=== PATIENT | female | born 1965 | race Caucasian/White ===

== ENCOUNTER 2016-10-16 15:39 | Inpatient (IN) | payer OTHER ==
[2016-10-16 17:22] VITALS: BMI 25.2
--- NOTE | 2016-10-16 18:29 | HP ---
CIWA Score - CIWA Score Nausea/Vomitin-Mild Nausea/No Vomiting Muscle Tremors: 4-Moderate,w/Arms Extend Anxiety: 4-Mod. Anxious/Guarded Agitation: 4-Moderately Restless Paroxysmal Sweats: 1-Minimal Palms Moist Orientation: 0-Oriented Tacttile Disturbances: 0-None Auditory Disturbances: 0-None Visual Disturbances: 0-None Headache: 2-Mild CIWA-Ar Total Score: 16 Admission ROS BHS - HPI Chief Complaint: WITHDRAWAL SX Allergies/Adverse Reactions: Allergies Allergy/AdvReac Type Severity Reaction Status Date / Time Penicillins Allergy Verified 10/16/16 17:27 chocolate Allergy Uncoded 10/16/16 17:27 History of Present Illness: 51 YEARS OLD FEMALE WITH LONG HISTORY OF ALCOHOL NICOTINE DEPENDENCE HAS ASTHMA COPD AND SCHIZOPHRENIA IS ADMITTED TO DETOX Exam Limitations: No Limitations - Ebola screening Have you traveled outside of the country in the last 21 days: No Have you had contact with anyone from an Ebola affected area: No Have you been sick,other than usual withdrawal symptoms: No Do you have a fever: No - Review of Systems Constitutional: Chills, Loss of Appetite, Changes in sleep, Unintentional Wgt. Loss, Unexplained wgt Loss EENT: reports: Other (LOST EYE GLASSES) Respiratory: reports: Cough, SOB with Exertion Cardiac: reports: No Symptoms Reported GI: reports: Nausea, Poor Appetite, Poor Fluid Intake, Abdominal cramping : reports: No Symptoms Reported Musculoskeletal: reports: Back Pain Integumentary: reports: Change in Hair/Nails Neuro: reports: Tremors Endocrine: reports: No Symptoms Reported Hematology: reports: No Symptoms Reported Psychiatric: reports: Judgement Intact, Orientated x3 Other Systems: Reviewed and Negative Patient History - Patient Medical History Hx Anemia: No Hx Asthma: Yes Hx Chronic Obstructive Pulmonary Disease (COPD): No Hx Cancer: No Hx Cardiac Disorders: No Hx Congestive Heart Failure: No Hx Hypertension: No Hx Hypercholesterolemia: No Hx Pacemaker: No HX Cerebrovascular Accident: Yes (Mild right side 2014) Hx Seizures: No Hx Dementia: No Hx Diabetes: No Hx Gastrointestinal Disorders: No Hx Liver Disease: No Hx Genitourinary Disorders: No Hx Sexually Transmitted Disorders: No Hx Renal Disease (ESRD): No Hx Thyroid Disease: No Hx Human Immunodeficiency Virus (HIV): No Hx Hepatitis C: No Hx Depression: Yes Hx Suicide Attempt: No Hx Bipolar Disorder: Yes Hx Schizophrenia: Yes - Patient Surgical History Past Surgical History: Yes Hx Neurologic Surgery: No Hx Cataract Extraction: No Hx Cardiac Surgery: No Hx Lung Surgery: No Hx Breast Surgery: No Hx Breast Biopsy: Yes (cyst right breast 2011) Hx Abdominal Surgery: No Hx Appendectomy: No Hx Cholecystectomy: No Hx Genitourinary Surgery: No Hx Section: No Hx Orthopedic Surgery: No Hx Hysterectomy: No Anesthesia Reaction: No - PPD History Previous Implant?: Yes Documented Results: Negative w/o proof Implanted On Prior R Admission?: Yes Date: 09/15/14 PPD to be Administered?: Yes - Reproductive History Patient is a Female of Child Bearing Age (11 -55 yrs old): Yes Last Menstrual Period: 10/16/12 Patient : No - Smoking Cessation Smoking history: Current every day smoker Have you smoked in the past 12 months: Yes Aproximately how many cigarettes per day: 5 Cigars Per Day: 0 Hx Chewing Tobacco Use: No Initiated information on smoking cessation: Yes 'Breaking Loose' booklet given: 10/16/16 - Substance & Tx. History Hx Alcohol Use: Yes Hx Substance Use: Yes Substance Use Type: Alcohol, Marijuana Hx Substance Use Treatment: Yes - Substances Abused Alcohol Route: Oral Frequency: Daily Amount used: 1 Liter Vodka Age of first use: 14 Date of Last Use: 10/15/16 Marijuana/Hashish Route: Smoking Frequency: Daily Amount used: 5 bags Age of first use: 19 Date of Last Use: 10/15/16 Heroin Route: Inhalation Frequency: 1-3 times last 30 days Amount used: 1 bag Age of first use: 19 Date of Last Use: 09/16/16 Family Disease History - Family Disease History Family Disease History: Heart Disease: Mother (SEIZURE/HIV), Other: Father ( ALCOHOL), Mother, Brother (SUICIDAL) Admission Physical Exam BHS - Vital Signs Vital Signs: Vital Signs - 24 hr 10/16/16 17:16 Temperature 97.6 F Pulse Rate 92 H Respiratory 135 H Rate Blood Pressure 135/83 - Physical General Appearance: Yes: Nourished, Appropriately Dressed, Mild Distress, Tremorous, Irritable, Sweating, Anxious HEENTM: Yes: Hearing grossly Normal, Normal ENT Inspection, Normocephalic, Normal Voice Respiratory: Yes: Chest Non-Tender, No Respiratory Distress, No Accessory Muscle Use, Wheezing, Expiration Neck: Yes: Supple, Trachea in good position Breast: Yes: Breasts Symetrical Cardiology: Yes: Regular Rhythm, S1, S2, Tachycardia Abdominal: Yes: Non Tender, Soft Genitourinary: Yes: Within Normal Limits Back: Yes: Normal Inspection Musculoskeletal: Yes: full range of Motion, Gait Steady, Back pain Extremities: Yes: Normal Inspection, Normal Range of Motion, Non-Tender, Tremors Neurological: Yes: Fully Oriented, Alert, Motor Strength 5/5, Normal Response, Depressed Affect Integumentary: Yes: Warm, Rash (ALLERGIC TO CHOCOLATE ARMS) Lymphatic: Yes: Within Normal Limits - Diagnostic (1) Asthma Current Visit: Yes Status: Acute Qualifiers: Asthma severity: mild persistent Asthma complication type: with status asthmaticus Qualified Code(s): J45.32 - Mild persistent asthma with status asthmaticus (2) Schizoaffective disorder Current Visit: Yes Status: Suspected Qualifiers: Schizoaffective disorder type: bipolar Qualified Code(s): F25.0 - Schizoaffective disorder, bipolar type (3) COPD (chronic obstructive pulmonary disease) Current Visit: Yes Status: Acute Qualifiers: COPD type: emphysema (4) Nicotine dependence Current Visit: Yes Status: Acute Qualifiers: Nicotine product type: cigarettes Substance use status: in withdrawal Qualified Code(s): F17.213 - Nicotine dependence, cigarettes, with withdrawal (5) GERD (gastroesophageal reflux disease) Current Visit: Yes Status: Acute Qualifiers: Esophagitis presence: without esophagitis Qualified Code(s): K21.9 - Gastro-esophageal reflux disease without esophagitis Cleared for Admission S - Detox or Rehab [facility] Level of Care: Medically Managed Detox Regimen/Protocol: Librium [facility] Breath Alcohol Content Breath Alcohol Content: 0 Urine Pregancy Test - Result Urine Test Results: Negative- NO Line Present Urine Drug Screen - Results Drug Screen Negative: No Urine Drug Screen Results: THC-Marijuana, TCA-Tricyclic Antidepress
[2016-10-16] MEDS ORDERED: MENTHOL/PHENOL 1 EACH UD MM PRN (18:38)
[2016-10-16] MEDS ORDERED: MAGNESIUM HYDROX 2400MG/30ML ORAL SUSPENSION 30 ML CUP PO PRN (18:38)
[2016-10-16] MEDS ORDERED: LOPERAMIDE HCL 2 MG CAPSULE PO PRN (18:38)
[2016-10-16] MEDS ORDERED: MAGNESIUM CITRATE 300 ML BOTTLE PO PRN (18:38)
[2016-10-16] MEDS ORDERED: hydrOXYzine PAMOATE 50 MG CAPSULE (FP) PO PRN (18:38)
[2016-10-16] MEDS ORDERED: NICOTINE POLACRILEX 2 MG GUM BC PRN (18:38)
[2016-10-16] MEDS ORDERED: MAG HYDROX/AL HYDROX/SIMETH 30 ML UNIT-DOSE CUP PO PRN (18:38)
[2016-10-16] MEDS ORDERED: guaiFENesin/D-METHORPHAN HB 10 ML UNIT-DOSE CUPS PO PRN (18:38)
[2016-10-16] MEDS ORDERED: P-EPHED 60MG/TRIPROLIDI 2.5MG TABLET PO PRN (18:38)
[2016-10-16] MEDS ORDERED: chlordiazePOXIDE HCL 25 MG CAPSULE PO PRN (18:38)
[2016-10-16] MEDS ORDERED: ACETAMINOPHEN 325 MG TABLET (FP) PO PRN (18:38)
[2016-10-16] MEDS ORDERED: ALBUTEROL SO4 6.7 GM HFA INHALER IH PRN (18:41)
[2016-10-16 22:22] LABS: URINE APPEARANCE CLEAR; URINE BILIRUBIN NEGATIVE (NEGATIVE); URINE COLOR YELLOW; URINE GLUCOSE (UA) NEGATIVE (NEGATIVE); URINE KETONE NEGATIVE (NEGATIVE); URINE LEUK ESTERASE NEGATIVE (NEGATIVE); URINE NITRITE NEGATIVE (NEGATIVE); URINE PROTEIN NEGATIVE (NEGATIVE); URINE UROBILINOGEN 2.0 E.U/dl E.U./dl (0.2-1.0)
[2016-10-16 22:34] LABS: URINE BLOOD 1+ (NEGATIVE)
[2016-10-16 22:44] LABS: URINE MUCUS MANY; URINE RBC 4 /hpf (0-3); URINE WBC 2 /hpf (3-5)
[2016-10-16] MEDS: BUDESONIDE/FORMETEROL FUMARATE 80/4.5 mcg INHALER IH SCH (22:44)
[2016-10-16] MEDS: diphenhydrAMINE HCL 50 MG CAPSULE PO PRN (22:45)
[2016-10-16] MEDS: chlordiazePOXIDE HCL 25 MG CAPSULE PO SCH (22:45)
[2016-10-16] MEDS: THIAMINE HCL 100 MG TABLET (FP) PO SCH (22:45)
[2016-10-16] MEDS: RANITIDINE HCL 150 MG TABLET (FP) PO SCH (22:45)
[2016-10-17] MEDS: chlordiazePOXIDE HCL 25 MG CAPSULE PO SCH ×4 (06:14→22:42)
--- NOTE | 2016-10-17 09:06 | CONSULT ---
[facility] Psychiatric Consult - Data Date of interview: 10/17/16 Admission source: [facility] Identifying data: Gwen is 51 years old female with no psychiatric hospitalization history intoxicated with Alcohol, Heroin, Cannabis, Cociane and Nicotine Substance Abuse History: - Smoking Cessation. Smoking history: Current every day smoker. Have you smoked in the past 12 months: Yes. Aproximately how many cigarettes per day: 5. Cigars Per Day: 0. Hx Chewing Tobacco Use: No. Initiated information on smoking cessation: Yes. 'Breaking Loose' booklet given : 10/16/16. - Substance & Tx. History. Hx Alcohol Use: Yes. Hx Substance Use : Yes. Substance Use Type: Alcohol, Marijuana. Hx Substance Use Treatment: Yes. - Substances Abused. Alcohol. Route: Oral. Frequency: Daily. Amount used: 1 Liter Vodka. Age of first use: 14. Date of Last Use: 10/15/16. Marijuana/Hashish. Route: Smoking. Frequency: Daily. Amount used: 5 bags. Age of first use: 19. Date of Last Use: 10/15/16. Heroin. Route: Inhalation. Frequency: 1-3 times last 30 days. Amount used: 1 bag. Age of first use: 19. Date of Last Use: 09/16/16 Medical History: Asthma, COPD, GERD, Arthritis, HTN Psychiatric History: Patient with history of Schizoaffective disorder, reports no psychiatric hospitalization history, reports taking prior to admission: Seroquel 500mg po qhs. Remeron 30mg po qhs. Asper computer has been on: Zyprexa 15mg po qhs Physical/Sexual Abuse/Trauma History: Denies Additional Comment: Seroquel 500mg po qhs. Remeron 30mg po qhs. As per computer has been on: Zyprexa 15mg po qhs Mental Status Exam - Mental Status Exam Alert and Oriented to: Person Cognitive Function: Fair Patient Appearance: Unkempt Mood: Sad Affect: Flat Patient Behavior: Cooperative Speech Pattern: Appropriate Voice Loudness: Mildly Soft/Quiet Thought Process: Circumstantial Thought Disorder: Being Controlled Hallucinations: Denies Suicidal Ideation: Denies Homicidal Ideation: Denies Insight/Judgement: Fair Sleep: Difficulty falling asleep Appetite: Fair Muscle strength/Tone: Mild Hypotonicity Gait/Station: Shuffling Additional Comments: Seroquel 500mg po qhs. Remeron 30mg po qhs. As per computer has been on: Zyprexa 15mg po qhs Psychiatric Findings - Problem List ([place] 1, 2,3) (1) Nicotine dependence Current Visit: Yes Status: Acute Qualifiers: Nicotine product type: cigarettes Substance use status: in withdrawal Qualified Code(s): F17.213 - Nicotine dependence, cigarettes, with withdrawal (2) Schizoaffective disorder Current Visit: Yes Status: Suspected Qualifiers: Schizoaffective disorder type: bipolar Qualified Code(s): F25.0 - Schizoaffective disorder, bipolar type (3) Cannabis abuse Current Visit: No Status: Acute (4) Cannabis dependence Current Visit: No Status: Acute (5) Cocaine dependence Current Visit: No Status: Acute - Initial Treatment Plan Initial Treatment Plan: Seroquel 400mg po qhs. Remeron 30mg po qhs
[2016-10-17 09:56] LABS: MCH 32.2 pg (25.7-33.7); MEAN CELL VOLUME 97.6 fl (80-96); PLATELET COUNT 127 K/MM3 (134-434); RDW 14.6 % (11.6-15.6)
[2016-10-17] MEDS: PRENATAL VITAMINS W/ FOLIC ACID TABLET (FP) PO SCH (10:17)
[2016-10-17] MEDS: BUDESONIDE/FORMETEROL FUMARATE 80/4.5 mcg INHALER IH SCH ×2 (10:17→22:43)
[2016-10-17] MEDS: NICOTINE 14 MG/24 HOURS TOPICAL PATCH TD SCH (10:18)
[2016-10-17] MEDS: RANITIDINE HCL 150 MG TABLET (FP) PO SCH ×2 (10:19→22:43)
[2016-10-17 10:26] LABS: ALBUMIN 3.3 g/dl (3.4-5.0); ALK PHOS 46 U/L (45-117); ANION GAP 8 (8-16); BILIRUBIN,TOTAL 0.3 mg/dL (0.2-1.0); CALCIUM 8.6 mg/dL (8.5-10.1); CO2 26 mmol/L (21-32); CREATININE 0.7 mg/dL (0.55-1.02); GLUCOSE,RANDOM 109 mg/dL (74-106); SGOT/AST 11 U/L (15-37); SGPT/ALT 11 U/L (12-78); TOT PROT 5.8 g/dl (6.4-8.2)
--- NOTE | 2016-10-17 12:00 | PN ---
[facility] CIWA - CIWA Score Nausea/Vomitin Muscle Tremors: 2 Anxiety: 3 Agitation: 4-Moderately Restless Paroxysmal Sweats: 3 Orientation: 0-Oriented Tacttile Disturbances: 2-Mild Itch/Numbness/Burn Auditory Disturbances: 0-None Visual Disturbances: 0-None Headache: 0-None Present CIWA-Ar Total Score: 16 S Progress Note (SOAP) Subjective: interrupted sleep, sweats, rt shoulder pain , restless Objective: 10/17/16 11:59 Vital Signs Temperature 98.2 F 10/17/16 10:17 Pulse Rate 89 10/17/16 10:17 Respiratory Rate 16 10/17/16 10:17 Blood Pressure 139/87 10/17/16 10:17 O2 Sat by Pulse Oximetry (%) Laboratory Tests 10/16/16 10/17/16 10/17/16 22:10 07:00 07:00 WBC 4.0 RBC 3.80 Hgb 12.2 D Hct 37.1 MCV 97.6 H MCHC 33.0 RDW 14.6 Plt Count 127 L D MPV 9.0 Sodium 142 Potassium 3.6 Chloride 108 H Carbon Dioxide 26 Anion Gap 8 BUN 14 D Creatinine 0.7 Creat Clearance w eGFR > 60 Random Glucose 109 H D Calcium 8.6 Total Bilirubin 0.3 D AST 11 L ALT 11 L D Alkaline Phosphatase 46 D Total Protein 5.8 L Albumin 3.3 L Urine Color Yellow Urine Appearance Clear Urine pH 6.0 Ur Specific [place] 1.030 Urine Protein Negative Urine Glucose (UA) Negative Urine Ketones Negative Urine Blood 1+ H Urine Nitrite Negative Urine Bilirubin Negative Urine Urobilinogen 2.0 e.u/dl H Ur Leukocyte Esterase Negative Urine RBC 4 Urine WBC 2 Ur Epithelial Cells Rare Urine Mucus Many RPR Titer 10/17/16 07:00 WBC RBC Hgb Hct MCV MCHC RDW Plt Count MPV Sodium Potassium Chloride Carbon Dioxide Anion Gap BUN Creatinine Creat Clearance w eGFR Random Glucose Calcium Total Bilirubin AST ALT Alkaline Phosphatase Total Protein Albumin Urine Color Urine Appearance Urine pH Ur Specific [place] Urine Protein Urine Glucose (UA) Urine Ketones Urine Blood Urine Nitrite Urine Bilirubin Urine Urobilinogen Ur Leukocyte Esterase Urine RBC Urine WBC Ur Epithelial Cells Urine Mucus RPR Titer Nonreactive pt aox3 in nad ,restless Assessment: 10/17/16 11:59 withdrawal sx's lbbb on ekg rt shoulder radiculopathy Plan: cont. detox increase fluids motrin prn
[2016-10-17] MEDS: diphenhydrAMINE HCL 50 MG CAPSULE PO PRN (22:42)
[2016-10-17] MEDS: MIRTAZAPINE 30 MG TABLET (FP) PO SCH (22:42)
[2016-10-17] MEDS: QUEtiapine FUMARATE 400 MG TABLET PO SCH (22:42)
[2016-10-17] MEDS: THIAMINE HCL 100 MG TABLET (FP) PO SCH (22:43)
[2016-10-18] MEDS: chlordiazePOXIDE HCL 25 MG CAPSULE PO SCH ×3 (06:21→17:29)
[2016-10-18] MEDS: BUDESONIDE/FORMETEROL FUMARATE 80/4.5 mcg INHALER IH SCH ×2 (10:29→22:50)
[2016-10-18] MEDS: NICOTINE 14 MG/24 HOURS TOPICAL PATCH TD SCH (10:29)
[2016-10-18] MEDS: PRENATAL VITAMINS W/ FOLIC ACID TABLET (FP) PO SCH (10:30)
[2016-10-18] MEDS: RANITIDINE HCL 150 MG TABLET (FP) PO SCH ×2 (10:31→22:51)
--- NOTE | 2016-10-18 11:48 | PN ---
[facility] CIWA - CIWA Score Nausea/Vomitin-No Nausea/No Vomiting Muscle Tremors: 4-Moderate,w/Arms Extend Anxiety: 3 Agitation: 4-Moderately Restless Paroxysmal Sweats: 3 Orientation: 0-Oriented Tacttile Disturbances: 0-None Auditory Disturbances: 0-None Visual Disturbances: 0-None Headache: 0-None Present CIWA-Ar Total Score: 14 BHS Progress Note (SOAP) Subjective: irritable agitation anxiety tired Objective: 10/18/16 11:48 Vital Signs Temperature 101.5 F H 10/18/16 10:00 Pulse Rate 97 H 10/18/16 10:00 Respiratory Rate 16 10/18/16 10:00 Blood Pressure 146/82 10/18/16 10:00 O2 Sat by Pulse Oximetry (%) Laboratory Tests 10/16/16 10/16/16 10/17/16 07:00 22:10 07:00 WBC 4.0 RBC 3.80 Hgb 12.2 D Hct 37.1 MCV 97.6 H MCHC 33.0 RDW 14.6 Plt Count 127 L D MPV 9.0 Sodium Potassium Chloride Carbon Dioxide Anion Gap BUN Creatinine Creat Clearance w eGFR Random Glucose Calcium Total Bilirubin AST ALT Alkaline Phosphatase Total Protein Albumin Urine Color Yellow Urine Appearance Clear Urine pH 6.0 Ur Specific [place] 1.030 Urine Protein Negative Urine Glucose (UA) Negative Urine Ketones Negative Urine Blood 1+ H Urine Nitrite Negative Urine Bilirubin Negative Urine Urobilinogen 2.0 e.u/dl H Ur Leukocyte Esterase Negative Urine RBC 4 Urine WBC 2 Ur Epithelial Cells Rare Urine Mucus Many RPR Titer Hepatitis C Antibody 0.1 10/17/16 10/17/16 07:00 07:00 WBC RBC Hgb Hct MCV MCHC RDW Plt Count MPV Sodium 142 Potassium 3.6 Chloride 108 H Carbon Dioxide 26 Anion Gap 8 BUN 14 D Creatinine 0.7 Creat Clearance w eGFR > 60 Random Glucose 109 H D Calcium 8.6 Total Bilirubin 0.3 D AST 11 L ALT 11 L D Alkaline Phosphatase 46 D Total Protein 5.8 L Albumin 3.3 L Urine Color Urine Appearance Urine pH Ur Specific [place] Urine Protein Urine Glucose (UA) Urine Ketones Urine Blood Urine Nitrite Urine Bilirubin Urine Urobilinogen Ur Leukocyte Esterase Urine RBC Urine WBC Ur Epithelial Cells Urine Mucus RPR Titer Nonreactive Hepatitis C Antibody awake/alert ambulating no acute distress Assessment: 10/18/16 11:48 withdrawal sx Plan: continue detox increase fluids
[2016-10-18] MEDS: diphenhydrAMINE HCL 50 MG CAPSULE PO PRN (22:50)
[2016-10-18] MEDS: MIRTAZAPINE 30 MG TABLET (FP) PO SCH (22:51)
[2016-10-18] MEDS: QUEtiapine FUMARATE 400 MG TABLET PO SCH (22:51)
[2016-10-18] MEDS: chlordiazePOXIDE 5 MG CAPSULE PO SCH (22:51)
[2016-10-18] MEDS: THIAMINE HCL 100 MG TABLET (FP) PO SCH (22:51)
[2016-10-19] MEDS: chlordiazePOXIDE 5 MG CAPSULE PO SCH ×3 (06:25→17:55)
[2016-10-19] MEDS: PRENATAL VITAMINS W/ FOLIC ACID TABLET (FP) PO SCH (12:07)
[2016-10-19] MEDS: RANITIDINE HCL 150 MG TABLET (FP) PO SCH ×2 (12:07→23:26)
[2016-10-19] MEDS: BUDESONIDE/FORMETEROL FUMARATE 80/4.5 mcg INHALER IH SCH ×2 (12:07→23:27)
[2016-10-19] MEDS: NICOTINE 14 MG/24 HOURS TOPICAL PATCH TD SCH (12:08)
--- NOTE | 2016-10-19 15:10 | PN ---
S Progress Note (SOAP) Subjective: ALERT,IRRITABLE,ANXIOUS,INTERRUPTED SLEEP Objective: 10/19/16 15:09 Vital Signs Temperature 98.2 F 10/19/16 14:30 Pulse Rate 92 H 10/19/16 14:30 Respiratory Rate 16 10/19/16 14:30 Blood Pressure 117/82 10/19/16 14:30 O2 Sat by Pulse Oximetry (%) Assessment: 10/19/16 15:09 WITHDRAWAL SYMPTOM Plan: CONTINUE DETOX,DISCHARGE IN AM
[2016-10-19] MEDS ORDERED: ZOLPIDEM TARTRATE 5 MG TABLET PO PRN (20:44)
[2016-10-19] MEDS: chlordiazePOXIDE HCL 10 MG CAPSULE PO SCH (23:26)
[2016-10-19] MEDS: MIRTAZAPINE 30 MG TABLET (FP) PO SCH (23:27)
[2016-10-19] MEDS: QUEtiapine FUMARATE 400 MG TABLET PO SCH (23:27)
[2016-10-19] MEDS: THIAMINE HCL 100 MG TABLET (FP) PO SCH (23:27)
[2016-10-20] MEDS: chlordiazePOXIDE HCL 10 MG CAPSULE PO SCH (06:16)
--- NOTE | 2016-10-20 08:08 | PN ---
S Progress Note (SOAP) Subjective: ALERT,NO COMPLAINT Objective: 10/20/16 08:05 10/20/16 08:07 Vital Signs Temperature 97.9 F 10/20/16 07:44 Pulse Rate 97 H 10/20/16 07:44 Respiratory Rate 20 10/20/16 07:44 Blood Pressure 127/71 10/20/16 07:44 O2 Sat by Pulse Oximetry (%) Assessment: 10/20/16 08:07 DETOX COMPLETED,NO WITHDRAWAL SYMPTOM Plan: DISCHARGE TODAY,FOLLOW UP WITH AFTER CARE PROGRAM ARRANGEMENT
--- NOTE | 2016-10-20 08:14 | DS ---
[facility] Detox Discharge Summary Admission Date: 10/16/16 Discharge Date: 10/20/16 - History Present History: Alcohol Dependence, Cocaine Dependence, Opioid Dependence Additional Comments: FOLLOW UP WITH AFTER [facility] PROGRAM ARRANGEMENT Pertinent Past History: ASTHMA COPD SCHIZOAFFECTIVE DISORDER GERD NICOTINE DEPENDENCE - Physical Exam Results Vital Signs: Vital Signs Temperature 97.9 F 10/20/16 07:44 Pulse Rate 97 H 10/20/16 07:44 Respiratory Rate 20 10/20/16 07:44 Blood Pressure 127/71 10/20/16 07:44 O2 Sat by Pulse Oximetry (%) Pertinent Admission Physical Exam Findings: WITHDRAWAL SYMPTOM - Treatment Hospital Course: Detox Protocol Followed, Detoxed Safely, Responded well, Discharged Condition Good Patient has Accepted a Rehab Referral to: DECLINED - Medication Discharge Medications: Ambulatory Orders Albuterol Sulfate Inhaler - [Ventolin HFA Inhaler -] 2 inh PO Q4H PRN 09/13/14 Mirtazapine [Remeron -] 30 mg PO HS 09/13/14 Olanzapine [Zyprexa] 15 mg PO HS 09/13/14 Advair 100Mcg/50Mcg - 1 mcg IH QID 02/09/16 Albuterol Sulfate 90 mcg IH QID PRN 02/09/16 Naprosyn - 500 mg PO BID 02/09/16 Sumatriptan Succinate 50 mg PO BID 02/09/16 Mirtazapine [Remeron -] 30 mg PO HS #30 tablet 10/17/16 Quetiapine Fumarate [Seroquel -] 200 mg PO BID #60 tab 10/17/16 - Diagnosis (1) Asthma Current Visit: Yes Status: Acute Qualifiers: Asthma severity: mild persistent Asthma complication type: with status asthmaticus Qualified Code(s): J45.32 - Mild persistent asthma with status asthmaticus (2) COPD (chronic obstructive pulmonary disease) Current Visit: Yes Status: Acute Qualifiers: COPD type: emphysema (3) GERD (gastroesophageal reflux disease) Current Visit: Yes Status: Acute Qualifiers: Esophagitis presence: without esophagitis Qualified Code(s): K21.9 - Gastro-esophageal reflux disease without esophagitis (4) Nicotine dependence Current Visit: Yes Status: Acute Qualifiers: Nicotine product type: cigarettes Substance use status: in withdrawal Qualified Code(s): F17.213 - Nicotine dependence, cigarettes, with withdrawal (5) Schizoaffective disorder Current Visit: Yes Status: Suspected Qualifiers: Schizoaffective disorder type: bipolar Qualified Code(s): F25.0 - Schizoaffective disorder, bipolar type (6) Arthritis Current Visit: No Status: Acute (7) Cannabis dependence Current Visit: No Status: Acute (8) Cocaine dependence Current Visit: No Status: Acute - AMA Did Patient Leave Against Medical Advice: No
[2016-10-20] MEDS: BUDESONIDE/FORMETEROL FUMARATE 80/4.5 mcg INHALER IH SCH (09:53)
[2016-10-20] MEDS: NICOTINE 14 MG/24 HOURS TOPICAL PATCH TD SCH (09:53)
[2016-10-20] MEDS: PRENATAL VITAMINS W/ FOLIC ACID TABLET (FP) PO SCH (09:57)
[2016-10-20] MEDS: RANITIDINE HCL 150 MG TABLET (FP) PO SCH (09:57)
[2016-10-20 10:06] VITALS: BP 135/75; PULSE 100; TEMP 98.2
--- NOTE | 2016-10-22 17:03 | EKG ---
Test Reason : Blood Pressure : / mmHG Vent. Rate : 092 BPM Atrial Rate : 092 BPM P-R Int : 184 ms QRS Dur : 148 ms QT Int : 438 ms P-R-T Axes : 066 -36 068 degrees QTc Int : 541 ms NORMAL SINUS RHYTHM LEFT AXIS DEVIATION LEFT BUNDLE BRANCH BLOCK ABNORMAL ECG WHEN COMPARED WITH ECG OF 16-OCT-2016 19:08, T WAVE VARIATION Confirmed by WILLOW ADAM MD ([id number]) on 10/22/2016 5:03:09 PM Referred By: Confirmed By:WILLOW ADAM MD
== END 2016-10-20 10:33 | disposition home or self-care (01) | DRG 773 ==
LOC: YASAS 15:39 → Y6N 19:29
PROVIDERS: ADMIT Internal Medicine Addiction Medicine; ATTEND Internal Medicine Addiction Medicine
PROC: HZ2ZZZZ Detoxification Services for Substance Abuse Treatment (ICD-10-PCS; principal; 2016-10-16)
DX: F11.23 Opioid dependence with withdrawal (principal); F10.230 Alcohol dependence with withdrawal, uncomplicated; F14.20 Cocaine dependence, uncomplicated; F12.20 Cannabis dependence, uncomplicated; F17.210 Nicotine dependence, cigarettes, uncomplicated; F25.0 Schizoaffective disorder, bipolar type; J45.32 Mild persistent asthma with status asthmaticus; J43.9 Emphysema, unspecified; K21.9 Gastro-esophageal reflux disease without esophagitis; M19.90 Unspecified osteoarthritis, unspecified site; I44.7 Left bundle-branch block, unspecified; M54.12 Radiculopathy, cervical region; R00.0 Tachycardia, unspecified; Z86.73 Personal history of transient ischemic attack (TIA), and cerebral infarction without residual deficits
CPT/HCPCS: 36415; 80053; 81003; 81015; 85027; 86593; 93005; 93010

== ENCOUNTER 2017-03-31 20:33 | Inpatient (IN) | payer OTHER ==
[2017-03-31 22:00] VITALS: BMI 20.7
--- NOTE | 2017-03-31 22:22 | HP ---
CIWA Score - CIWA Score Nausea/Vomitin-Mild Nausea/No Vomiting Muscle Tremors: 4-Moderate,w/Arms Extend Anxiety: 4-Mod. Anxious/Guarded Agitation: 4-Moderately Restless Paroxysmal Sweats: 1-Minimal Palms Moist Orientation: 0-Oriented Tacttile Disturbances: 0-None Auditory Disturbances: 0-None Visual Disturbances: 0-None Headache: 2-Mild CIWA-Ar Total Score: 16 Admission ROS S - HPI Chief Complaint: withdrawal sx Allergies/Adverse Reactions: Allergies Allergy/AdvReac Type Severity Reaction Status Date / Time Penicillins Allergy Verified 03/31/17 22:20 chocolate Allergy Uncoded 03/31/17 22:20 History of Present Illness: 51 years old female with long history of alcohol marijuana cocaine nicotine dependence, has asthma copd gerd hypertension right upper tooth abscess - clindamycine, and schizophrenia is admitted to detox Exam Limitations: No Limitations - Ebola screening Have you traveled outside of the country in the last 21 days: No (N) Have you had contact with anyone from an Ebola affected area: No Have you been sick,other than usual withdrawal symptoms: No Do you have a fever: No - Review of Systems Constitutional: Loss of Appetite, Changes in sleep, Unintentional Wgt. Loss, Unexplained wgt Loss EENT: reports: Hearing Loss (right ear trauma), Dental Problems (right upper tooth abscess) Respiratory: reports: SOB with Exertion, Productive cough Cardiac: reports: No Symptoms Reported GI: reports: Nausea, Poor Appetite, Poor Fluid Intake, Indigestion, Abdominal cramping : reports: No Symptoms Reported Musculoskeletal: reports: Joint Pain (right shoulder), Muscle Weakness (right arm) Integumentary: reports: No Symptoms Reported Neuro: reports: Tremors Endocrine: reports: No Symptoms Reported Hematology: reports: No Symptoms Reported Psychiatric: reports: Judgement Intact, Orientated x3, Anxious, Depressed Other Systems: Reviewed and Negative Patient History - Patient Medical History Hx Anemia: No Hx Asthma: Yes Hx Chronic Obstructive Pulmonary Disease (COPD): Yes Hx Cancer: No Hx Cardiac Disorders: No Hx Congestive Heart Failure: No Hx Hypertension: No Hx Hypercholesterolemia: No Hx Pacemaker: No HX Cerebrovascular Accident: Yes (Mild right side 2014) Hx Seizures: No Hx Dementia: No Hx Diabetes: No Hx Gastrointestinal Disorders: No Hx Liver Disease: No Hx Genitourinary Disorders: No Hx Sexually Transmitted Disorders: No Hx Renal Disease (ESRD): No Hx Thyroid Disease: No Hx Human Immunodeficiency Virus (HIV): No Hx Hepatitis C: No Hx Depression: No Hx Suicide Attempt: Yes (age 38 hang self) Hx Bipolar Disorder: No Hx Schizophrenia: Yes - Patient Surgical History Past Surgical History: Yes Hx Neurologic Surgery: No Hx Cataract Extraction: No Hx Cardiac Surgery: No Hx Lung Surgery: No Hx Breast Surgery: No Hx Breast Biopsy: Yes (cyst right breast 2011) Hx Abdominal Surgery: No Hx Appendectomy: No Hx Cholecystectomy: No Hx Genitourinary Surgery: No Hx Section: No Hx Orthopedic Surgery: Yes (right great toe kali insertin 2012) Hx Hysterectomy: No Anesthesia Reaction: No - PPD History Previous Implant?: Yes Documented Results: Negative w/proof Implanted On Prior [facility] Admission?: Yes Date: 10/18/16 PPD to be Administered?: No - Reproductive History Patient is a Female of Child Bearing Age (11 -55 yrs old): Yes Last Menstrual Period: 10/16/12 Patient : No - Smoking Cessation Smoking history: Current every day smoker Have you smoked in the past 12 months: Yes Aproximately how many cigarettes per day: 5 Cigars Per Day: 0 Hx Chewing Tobacco Use: No Initiated information on smoking cessation: Yes 'Breaking Loose' booklet given: 03/31/17 - Substance & Tx. History Hx Alcohol Use: Yes Hx Substance Use: Yes Substance Use Type: Alcohol, Cocaine, Marijuana Hx Substance Use Treatment: Yes (10/16-10/20/16 [facility]) - Substances Abused Alcohol Route: Oral Frequency: Daily Amount used: quart bety Age of first use: 14 Date of Last Use: 03/31/17 Family Disease History - Family Disease History Family Disease History: Heart Disease: Mother (SEIZURE/HIV/), Other: Father (ALCOHOL), Mother, Brother (SUICIDAL) Admission Physical Exam BHS - Vital Signs Vital Signs: Vital Signs - 24 hr 03/31/17 21:58 Temperature 99.6 F Pulse Rate 108 H Respiratory 20 Rate Blood Pressure 139/76 - Physical General Appearance: Yes: Appropriately Dressed, Moderate Distress, Alcohol on Breath, Thin, Tremorous, Irritable, Sweating, Anxious HEENTM: Yes: Hearing grossly Normal, Normal ENT Inspection, Normocephalic, Normal Voice Respiratory: Yes: Chest Non-Tender, No Respiratory Distress, No Accessory Muscle Use, Wheezing, Hyperresonant Neck: Yes: Supple, Trachea in good position Breast: Yes: Breasts Symetrical Cardiology: Yes: Regular Rhythm, S1, S2, Tachycardia Abdominal: Yes: Non Tender, Soft Genitourinary: Yes: Within Normal Limits Back: Yes: Normal Inspection Musculoskeletal: Yes: full range of Motion, Gait Steady, Muscle Pain (right shoulder) Extremities: Yes: Normal Inspection, Normal Range of Motion, Non-Tender, Tremors Neurological: Yes: Alert, Motor Strength 5/5, Normal Response, Depressed Affect Integumentary: Yes: Warm Lymphatic: Yes: Within Normal Limits - Diagnostic (1) Asthma Current Visit: Yes Status: Acute Qualifiers: Asthma severity: mild persistent Asthma complication type: with status asthmaticus Qualified Code(s): J45.32 - Mild persistent asthma with status asthmaticus (2) COPD (chronic obstructive pulmonary disease) Current Visit: Yes Status: Chronic Qualifiers: COPD type: emphysema Emphysema type: unspecified Qualified Code( s): J43.9 - Emphysema, unspecified (3) GERD (gastroesophageal reflux disease) Current Visit: Yes Status: Chronic Qualifiers: Esophagitis presence: without esophagitis Qualified Code(s): K21.9 - Gastro-esophageal reflux disease without esophagitis (4) Nicotine dependence Current Visit: Yes Status: Acute Qualifiers: Nicotine product type: cigarettes Substance use status: in withdrawal Qualified Code(s): F17.213 - Nicotine dependence, cigarettes, with withdrawal (5) Schizoaffective disorder Current Visit: Yes Status: Suspected Qualifiers: Schizoaffective disorder type: bipolar Qualified Code(s): F25.0 - Schizoaffective disorder, bipolar type (6) Alcohol dependence with uncomplicated withdrawal Current Visit: Yes Status: Acute (7) Cocaine dependence, uncomplicated Current Visit: Yes Status: Chronic (8) Cannabis dependence, uncomplicated Current Visit: Yes Status: Chronic (9) Tooth abscess Current Visit: Yes Status: Acute Comment: right upper clindamycine Cleared for Admission [facility] - Detox or Rehab [facility] Level of Care: Medically Managed Detox Regimen/Protocol: Librium [facility] Breath Alcohol Content Breath Alcohol Content: 0.087 Urine Pregancy Test - Result Urine Test Results: Negative- NO Line Present Urine Drug Screen - Results Drug Screen Negative: No Urine Drug Screen Results: THC-Marijuana, AGGIE-Cocaine
[2017-03-31] MEDS ORDERED: IBUPROFEN 400 MG TABLET (FP) PO PRN (22:26)
[2017-03-31] MEDS ORDERED: P-EPHED 60MG/TRIPROLIDI 2.5MG TABLET PO PRN (22:26)
[2017-03-31] MEDS ORDERED: MAG HYDROX/AL HYDROX/SIMETH 30 ML UNIT-DOSE CUP PO PRN (22:26)
[2017-03-31] MEDS ORDERED: MENTHOL/PHENOL 1 EACH UD MM PRN (22:26)
[2017-03-31] MEDS ORDERED: hydrOXYzine PAMOATE 50 MG CAPSULE (FP) PO PRN (22:26)
[2017-03-31] MEDS ORDERED: NICOTINE POLACRILEX 2 MG GUM BUC PRN (22:26)
[2017-03-31] MEDS ORDERED: guaiFENesin/D-METHORPHAN HB 10 ML UNIT-DOSE CUPS PO PRN (22:26)
[2017-03-31] MEDS ORDERED: MAGNESIUM HYDROX 2400MG/30ML ORAL SUSPENSION 30 ML CUP PO PRN (22:26)
[2017-03-31] MEDS ORDERED: chlordiazePOXIDE HCL 25 MG CAPSULE PO PRN (22:26)
[2017-03-31] MEDS ORDERED: diphenhydrAMINE HCL 50 MG CAPSULE PO PRN (22:26)
[2017-03-31] MEDS ORDERED: ACETAMINOPHEN 325 MG TABLET (FP) PO PRN (22:26)
[2017-03-31] MEDS ORDERED: MAGNESIUM CITRATE 300 ML BOTTLE PO PRN (22:26)
[2017-03-31] MEDS ORDERED: LOPERAMIDE HCL 2 MG CAPSULE PO PRN (22:26)
[2017-03-31] MEDS ORDERED: ALBUTEROL SO4 6.7 GM HFA INHALER IH PRN (22:30)
[2017-03-31] MEDS ORDERED: ALBUTEROL SO4 2.5/IPRATROPIUM 0.5 INH SOL 3 ML VIAL.NEB. NEB PRN (22:30)
[2017-03-31] MEDS ORDERED: RANITIDINE HCL 150 MG TABLET (FP) PO ONE (22:31)
[2017-03-31] MEDS ORDERED: CLINDAMYCIN HCL 300 MG CAPSULE PO SCH ×3 (22:45→23:45)
[2017-03-31] MEDS: chlordiazePOXIDE HCL 25 MG CAPSULE PO SCH (23:43)
[2017-04-01] MEDS: CLINDAMYCIN HCL 150 MG CAPSULE (FP) PO SCH ×3 (05:30→22:11)
[2017-04-01] MEDS: chlordiazePOXIDE HCL 25 MG CAPSULE PO SCH ×4 (05:30→22:11)
[2017-04-01 10:17] LABS: MCH 30.3 pg (25.7-33.7); MCHC 32.8 g/dl (32.0-36.0); MEAN CELL VOLUME 92.5 fl (80-96); MEAN PLT VOLUME 9.4 fl (7.5-11.1); PLATELET COUNT 186 K/MM3 (134-434); RDW 14.5 % (11.6-15.6); WHITE BLOOD COUNT 5.8 K/mm3 (4.0-10.0)
[2017-04-01] MEDS: RANITIDINE HCL 150 MG TABLET (FP) PO SCH ×2 (10:28→22:11)
[2017-04-01] MEDS: BUDESONIDE/FORMETEROL FUMARATE 80/4.5 mcg INHALER IH SCH ×2 (10:28→22:11)
[2017-04-01] MEDS: PRENATAL VITAMINS W/ FOLIC ACID TABLET (FP) PO SCH (10:28)
[2017-04-01] MEDS: NICOTINE 14 MG/24 HOURS TOPICAL PATCH TD SCH (10:30)
--- NOTE | 2017-04-01 11:06 | PN ---
[facility] CIWA - CIWA Score Nausea/Vomitin Muscle Tremors: 3 Anxiety: 3 Agitation: 2 Paroxysmal Sweats: 1-Minimal Palms Moist Orientation: 0-Oriented Tacttile Disturbances: 1-Very Mild Itch/Numbness Auditory Disturbances: 1-Very Mild Visual Disturbances: 1-Very Mild Sensitivity Headache: 2-Mild CIWA-Ar Total Score: 17 S Progress Note (SOAP) Subjective: ALERT,IRRITABLE,ANXIOUS,INTERRUPTED SLEEP,TREMOR Objective: 04/01/17 11:00 04/01/17 11:01 Vital Signs Temperature 98.2 F 04/01/17 10:23 Pulse Rate 76 04/01/17 10:23 Respiratory Rate 16 04/01/17 10:23 Blood Pressure 136/77 04/01/17 10:23 O2 Sat by Pulse Oximetry (%) EKG NSR,LBBB Laboratory Last Values WBC 5.8 K/mm3 (4.0-10.0) D 04/01/17 07:00 RBC 4.20 M/mm3 (3.60-5.2) 04/01/17 07:00 Hgb 12.7 GM/dL (10.7-15.3) 04/01/17 07:00 Hct 38.8 % (32.4-45.2) 04/01/17 07:00 MCV 92.5 fl (80-96) 04/01/17 07:00 MCH 30.3 pg (25.7-33.7) 04/01/17 07:00 MCHC 32.8 g/dl (32.0-36.0) 04/01/17 07:00 RDW 14.5 % (11.6-15.6) 04/01/17 07:00 Plt Count 186 K/MM3 (134-434) D 04/01/17 07:00 MPV 9.4 fl (7.5-11.1) 04/01/17 07:00 Sodium 140 mmol/L (136-145) 04/01/17 07:00 Potassium 3.3 mmol/L (3.5-5.1) L 04/01/17 07:00 Chloride 101 mmol/L (98-107) 04/01/17 07:00 LAB PENDING NO CHEST PAIN,NO SOB,NO DIZZINESS Assessment: 04/01/17 11:02 WITHDRAWAL SYMPTOM Plan: CONTINUE DETOX,K 3.3 HYPOKALEMIA K DUR 20 MEQ PO DAILY
[2017-04-01 11:07] LABS: ALBUMIN 3.3 g/dl (3.4-5.0); ALK PHOS 69 U/L (45-117); ANION GAP 10 (8-16); BILIRUBIN,TOTAL 0.7 mg/dL (0.2-1.0); CALCIUM 9.3 mg/dL (8.5-10.1); CO2 29 mmol/L (21-32); CREATININE 0.8 mg/dL (0.55-1.02); GLUCOSE,RANDOM 101 mg/dL (74-106); SGOT/AST 22 U/L (15-37); SGPT/ALT 24 U/L (12-78); TOT PROT 6.5 g/dl (6.4-8.2)
[2017-04-01] MEDS ORDERED: POTASSIUM CHLORIDE TABS 10 MEQ TABLET.ER (FP) PO SCH (11:30)
[2017-04-01 15:28] LABS: URINE APPEARANCE SLCLOUDY; URINE BILIRUBIN NEGATIVE (NEGATIVE); URINE BLOOD 1+ (NEGATIVE); URINE COLOR YELLOW; URINE GLUCOSE (UA) NEGATIVE (NEGATIVE); URINE KETONE NEGATIVE (NEGATIVE); URINE LEUK ESTERASE NEGATIVE (NEGATIVE); URINE NITRITE NEGATIVE (NEGATIVE); URINE PROTEIN NEGATIVE (NEGATIVE); URINE UROBILINOGEN NEGATIVE mg/dL (0.2-1.0)
--- NOTE | 2017-04-01 15:53 | CONSULT ---
[facility] Psychiatric Consult - Data Date of interview: 04/01/17 Admission source: [facility] Identifying data: Readmission to [facility] for this 51 y/o female seeking detox teatment on for alcohol,cocaine and marijuana dependence. Substance Abuse History: Confirmed by patient. Smoking Cessation. Smoking history: Current every day smoker. Have you smoked in the past 12 months: Yes. Aproximately how many cigarettes per day: 5. Cigars Per Day: 0. Hx Chewing Tobacco Use: No. Initiated information on smoking cessation: Yes. 'Breaking Loose' booklet given: 03/31/17. - Substance & Tx. History. Hx Alcohol Use: Yes. Hx Substance Use: Yes. Substance Use Type: Alcohol, Cocaine, Marijuana. Hx Substance Use Treatment: Yes (10/16-10/20/16 [facility] - Substances Abused. Alcohol. Route: Oral. Frequency: Daily. Amount used: quart volka. Age of first use: 14. Date of Last Use: 03/31/17 Medical History: COPD,bronchial asthma,migraine headaches,recent history of myocardial infarction (11/2016) as per self-report,hypertension,dental abcess ( current) and antecedent of CVA with right-sided weakness (2013). Psychiatric History: Diagnosed with Bipolar Disorder.Patient declares that she was prescribed seroquel 500 mg/hs by a private psychiatrist.Not taken for more than three months." I have stopped seeing my psychiatrist for a long time.May be more than four months ago.I cannot recall.It could be longer." Ms Jack endorses a history of multiple psychiatric hospitalizations (all at [facility]).Background of multiple suicide attempts (overdose with medications,self-mutilation,hanging). Physical/Sexual Abuse/Trauma History: No reported history of abuse. Additional Comment: Urine Drug Screen Results: THC-Marijuana, AGGIE-Cocaine.Noted Mental Status Exam - Mental Status Exam Alert and Oriented to: Time, Place, Person Cognitive Function: Grossly Intact Patient Appearance: Unkempt (frail habitus;tattoos on neck), Disheveled Mood: Nervous, Withdrawn, Apprehensive Affect: Mood Congruent Patient Behavior: Fatigued, Cooperative Speech Pattern: Clear, Appropriate (bilingual) Voice Loudness: Normal Thought Process: Intact, Goal Oriented Thought Disorder: Not Present Hallucinations: Denies Suicidal Ideation: Denies Homicidal Ideation: Denies Insight/Judgement: Poor Sleep: Poorly, Difficulty falling asleep Appetite: Good Muscle strength/Tone: Normal Gait/Station: Other (unsteady gait) Psychiatric Findings - Problem List (Gypsy 1, 2,3) (1) Alcohol dependence with uncomplicated withdrawal Current Visit: Yes Status: Acute (2) Cannabis dependence, uncomplicated Current Visit: Yes Status: Acute (3) Cocaine dependence, uncomplicated Current Visit: Yes Status: Acute (4) Nicotine dependence Current Visit: Yes Status: Acute Qualifiers: Nicotine product type: cigarettes Substance use status: in withdrawal Qualified Code(s): F17.213 - Nicotine dependence, cigarettes, with withdrawal (5) Substance induced mood disorder Current Visit: Yes Status: Acute (6) Schizoaffective disorder Current Visit: No Status: Suspected Qualifiers: Schizoaffective disorder type: bipolar Qualified Code(s): F25.0 - Schizoaffective disorder, bipolar type Comment: As per records. (7) Asthma Current Visit: Yes Status: Chronic Qualifiers: Asthma severity: mild persistent Asthma complication type: with status asthmaticus Qualified Code(s): J45.32 - Mild persistent asthma with status asthmaticus (8) Tooth abscess Current Visit: Yes Status: Acute Comment: right upper clindamycine (9) COPD (chronic obstructive pulmonary disease) Current Visit: Yes Status: Chronic Qualifiers: COPD type: emphysema Emphysema type: unspecified Qualified Code( s): J43.9 - Emphysema, unspecified (10) GERD (gastroesophageal reflux disease) Current Visit: Yes Status: Chronic Qualifiers: Esophagitis presence: without esophagitis Qualified Code(s): K21.9 - Gastro-esophageal reflux disease without esophagitis (11) Arthritis Current Visit: Yes Status: Acute (12) HTN (hypertension) Current Visit: Yes Status: Chronic (13) Insomnia Current Visit: Yes Status: Acute - Initial Treatment Plan Initial Treatment Plan: Psychoeducation.Detoxification.Medications : seroquel 50 mg po hs.Pharmacy claims reviewed.Noted script for seroquel 100 mg/hs dated at [facility].Dose reduced at this time (low weight,frail habitus, evidence of mild sedation,potential for falls due to R-sided weakness from past CVA).Side effects/benefits discussed with patient.She is in agreement with this plan of care.Observation.
[2017-04-01 16:38] LABS: CALCIUM OXALATE CRYSTALS MODERATE /hpf (NONE SEEN); URINE HYALINE CAST 5 /lpf; URINE MUCUS FEW; URINE RBC 3 /hpf (0-3); URINE WBC 2 /hpf (3-5)
[2017-04-01] MEDS ORDERED: QUEtiapine FUMARATE 50 MG TABLET PO SCH (22:00)
[2017-04-01] MEDS: MONTELUKAST NA 10 MG TABLET PO SCH (22:10)
[2017-04-01] MEDS: THIAMINE HCL 100 MG TABLET (FP) PO SCH (22:10)
[2017-04-02] MEDS: chlordiazePOXIDE HCL 25 MG CAPSULE PO SCH ×3 (05:18→17:13)
[2017-04-02] MEDS: CLINDAMYCIN HCL 150 MG CAPSULE (FP) PO SCH ×3 (05:18→23:12)
[2017-04-02] MEDS: PRENATAL VITAMINS W/ FOLIC ACID TABLET (FP) PO SCH (10:26)
[2017-04-02] MEDS: RANITIDINE HCL 150 MG TABLET (FP) PO SCH ×2 (10:26→22:12)
[2017-04-02] MEDS: POTASSIUM CHLORIDE TABS 20 MEQ TABLET.ER (FP) PO SCH (10:26)
[2017-04-02] MEDS: NICOTINE 14 MG/24 HOURS TOPICAL PATCH TD SCH (10:26)
[2017-04-02] MEDS: BUDESONIDE/FORMETEROL FUMARATE 80/4.5 mcg INHALER IH SCH ×2 (10:27→21:20)
--- NOTE | 2017-04-02 11:36 | PN ---
S CIWA - CIWA Score Nausea/Vomitin Muscle Tremors: 4-Moderate,w/Arms Extend Anxiety: 4-Mod. Anxious/Guarded Agitation: 4-Moderately Restless Paroxysmal Sweats: 3 Orientation: 0-Oriented Tacttile Disturbances: 0-None Auditory Disturbances: 0-None Visual Disturbances: 0-None Headache: 0-None Present CIWA-Ar Total Score: 18 BHS Progress Note (SOAP) Subjective: nausea, sweats, interrupted sleep, anxiety, tremors, wt loss, Objective: 04/02/17 11:35 Vital Signs - 24 hr 04/01/17 04/01/17 04/01/17 14:11 18:20 21:59 Temperature 99.7 F H 98.1 F 98.0 F Pulse Rate 78 80 73 Respiratory 18 18 16 Rate Blood Pressure 137/89 125/67 109/72 04/02/17 04/02/17 04/02/17 00:30 03:30 06:27 Temperature 96.3 F L Pulse Rate 60 Respiratory 18 18 16 Rate Blood Pressure 118/60 04/02/17 09:50 Temperature 98.1 F Pulse Rate 77 Respiratory 18 Rate Blood Pressure 140/77 Laboratory Tests 04/01/17 04/01/17 04/01/17 07:00 07:00 07:00 WBC 5.8 D RBC 4.20 Hgb 12.7 Hct 38.8 MCV 92.5 MCH 30.3 MCHC 32.8 RDW 14.5 Plt Count 186 D MPV 9.4 Sodium 140 Potassium 3.3 L Chloride 101 Carbon Dioxide 29 Anion Gap 10 BUN 18 D Creatinine 0.8 Creat Clearance w eGFR > 60 Random Glucose 101 Calcium 9.3 Total Bilirubin 0.7 D AST 22 D ALT 24 D Alkaline Phosphatase 69 D Total Protein 6.5 Albumin 3.3 L Urine Color Urine Appearance Urine pH Ur Specific [place] Urine Protein Urine Glucose (UA) Urine Ketones Urine Blood Urine Nitrite Urine Bilirubin Urine Urobilinogen Ur Leukocyte Esterase Urine RBC Urine WBC Ur Epithelial Cells Calcium Oxalate Crystal Hyaline Casts Urine Mucus RPR Titer Nonreactive 04/01/17 15:20 WBC RBC Hgb Hct MCV MCH MCHC RDW Plt Count MPV Sodium Potassium Chloride Carbon Dioxide Anion Gap BUN Creatinine Creat Clearance w eGFR Random Glucose Calcium Total Bilirubin AST ALT Alkaline Phosphatase Total Protein Albumin Urine Color Yellow Urine Appearance Slcloudy Urine pH 6.0 Ur Specific [place] 1.025 Urine Protein Negative Urine Glucose (UA) Negative Urine Ketones Negative Urine Blood 1+ H Urine Nitrite Negative Urine Bilirubin Negative Urine Urobilinogen Negative Ur Leukocyte Esterase Negative Urine RBC 3 Urine WBC 2 Ur Epithelial Cells Rare Calcium Oxalate Crystal Moderate Hyaline Casts 5 Urine Mucus Few RPR Titer Assessment: 04/02/17 11:36 withdrawal sx, hypokalemai, wt loss Plan: cont detox, fluids, supplement k, repeat labs, ensure plus 120ml po bid with meals
--- NOTE | 2017-04-02 18:05 | PN ---
[facility] Progress Note Note: Psychiatry Attending's note : Approached by patient. Issue :not sleeping well on seroquel 50 mg/hs. Sleep hygiene discussed with the patient. Noted as alert,well-related and steady. Seroquel is raised to 100 mg po hs. Patient agrees with this careplan. Benign hospital course.Normal vitals.
[2017-04-02] MEDS: THIAMINE HCL 100 MG TABLET (FP) PO SCH (22:11)
[2017-04-02] MEDS: chlordiazePOXIDE 5 MG CAPSULE PO SCH (22:12)
[2017-04-02] MEDS: QUEtiapine FUMARATE 100 MG TABLET (FP) PO SCH (22:12)
[2017-04-02] MEDS: MONTELUKAST NA 10 MG TABLET PO SCH (22:12)
[2017-04-03] MEDS: CLINDAMYCIN HCL 150 MG CAPSULE (FP) PO SCH ×3 (05:58→22:16)
[2017-04-03] MEDS: chlordiazePOXIDE 5 MG CAPSULE PO SCH ×3 (05:58→17:31)
[2017-04-03 09:56] LABS: ANION GAP 6 (8-16); CALCIUM 8.8 mg/dL (8.5-10.1); CO2 29 mmol/L (21-32); CREATININE 0.7 mg/dL (0.55-1.02); GLUCOSE,RANDOM 91 mg/dL (74-106)
[2017-04-03] MEDS: RANITIDINE HCL 150 MG TABLET (FP) PO SCH ×2 (10:31→22:17)
[2017-04-03] MEDS: POTASSIUM CHLORIDE TABS 20 MEQ TABLET.ER (FP) PO SCH (10:31)
[2017-04-03] MEDS: PRENATAL VITAMINS W/ FOLIC ACID TABLET (FP) PO SCH (10:31)
[2017-04-03] MEDS: BUDESONIDE/FORMETEROL FUMARATE 80/4.5 mcg INHALER IH SCH ×2 (10:31→22:38)
[2017-04-03] MEDS: NICOTINE 14 MG/24 HOURS TOPICAL PATCH TD SCH (10:32)
--- NOTE | 2017-04-03 11:36 | EKG ---
Test Reason : Blood Pressure : / mmHG Vent. Rate : 088 BPM Atrial Rate : 088 BPM P-R Int : 150 ms QRS Dur : 156 ms QT Int : 422 ms P-R-T Axes : 078 -31 083 degrees QTc Int : 510 ms NORMAL SINUS RHYTHM POSSIBLE LEFT ATRIAL ENLARGEMENT LEFT AXIS DEVIATION LEFT BUNDLE BRANCH BLOCK ABNORMAL ECG WHEN COMPARED WITH ECG OF 17-OCT-2016 08:11, NO SIGNIFICANT CHANGE WAS FOUND Confirmed by ADIN FELIX, ABEL ([id number]) on 04/03/2017 11:36:41 AM Referred By: Confirmed By:ABEL OAKLEY MD
--- NOTE | 2017-04-03 13:10 | PN ---
[facility] Progress Note (SOAP) Subjective: nausea, sweats, interrupted sleep, anxiety, tremors Objective: 04/03/17 13:09 Vital Signs - 8 hr 04/03/17 04/03/17 06:36 09:30 Temperature 97.7 F 97.9 F Pulse Rate 66 70 Respiratory 16 18 Rate Blood Pressure 115/57 126/70 Laboratory Tests 04/01/17 04/01/17 04/01/17 07:00 07:00 07:00 WBC 5.8 D RBC 4.20 Hgb 12.7 Hct 38.8 MCV 92.5 MCH 30.3 MCHC 32.8 RDW 14.5 Plt Count 186 D MPV 9.4 Sodium 140 Potassium 3.3 L Chloride 101 Carbon Dioxide 29 Anion Gap 10 BUN 18 D Creatinine 0.8 Creat Clearance w eGFR > 60 Random Glucose 101 Calcium 9.3 Total Bilirubin 0.7 D AST 22 D ALT 24 D Alkaline Phosphatase 69 D Total Protein 6.5 Albumin 3.3 L Urine Color Urine Appearance Urine pH Ur Specific [place] Urine Protein Urine Glucose (UA) Urine Ketones Urine Blood Urine Nitrite Urine Bilirubin Urine Urobilinogen Ur Leukocyte Esterase Urine RBC Urine WBC Ur Epithelial Cells Calcium Oxalate Crystal Hyaline Casts Urine Mucus RPR Titer Nonreactive 04/01/17 04/03/17 15:20 07:00 WBC RBC Hgb Hct MCV MCH MCHC RDW Plt Count MPV Sodium 143 Potassium 3.7 Chloride 108 H Carbon Dioxide 29 Anion Gap 6 L BUN 19 H Creatinine 0.7 Creat Clearance w eGFR Random Glucose 91 Calcium 8.8 Total Bilirubin AST ALT Alkaline Phosphatase Total Protein Albumin Urine Color Yellow Urine Appearance Slcloudy Urine pH 6.0 Ur Specific [place] 1.025 Urine Protein Negative Urine Glucose (UA) Negative Urine Ketones Negative Urine Blood 1+ H Urine Nitrite Negative Urine Bilirubin Negative Urine Urobilinogen Negative Ur Leukocyte Esterase Negative Urine RBC 3 Urine WBC 2 Ur Epithelial Cells Rare Calcium Oxalate Crystal Moderate Hyaline Casts 5 Urine Mucus Few RPR Titer Assessment: 04/03/17 13:10 withdrawal sx, k wnl will d/c k supplements Plan: cont detox
[2017-04-03] MEDS: THIAMINE HCL 100 MG TABLET (FP) PO SCH (22:16)
[2017-04-03] MEDS: QUEtiapine FUMARATE 100 MG TABLET (FP) PO SCH (22:16)
[2017-04-03] MEDS: chlordiazePOXIDE HCL 10 MG CAPSULE PO SCH (22:17)
[2017-04-03] MEDS: MONTELUKAST NA 10 MG TABLET PO SCH (22:17)
[2017-04-04] MEDS: chlordiazePOXIDE HCL 10 MG CAPSULE PO SCH (05:25)
[2017-04-04] MEDS: CLINDAMYCIN HCL 150 MG CAPSULE (FP) PO SCH (05:25)
--- NOTE | 2017-04-04 09:07 | DS ---
[facility] Detox Discharge Summary Admission Date: 03/31/17 Discharge Date: 04/04/17 - History Present History: Alcohol Dependence, Cannabis Dependence, Cocaine Dependence Additional Comments: FOLLOW UP WITH AFTER CARE PROGRAM ARRANGEMENT Pertinent Past History: ASTHMA COPD GERD NICOTINE DEPENDENCE TOOTH ABSCESS SCHIZOAFFECTIVE DISORDER - Physical Exam Results Vital Signs: Vital Signs Temperature 97.2 F L 04/04/17 06:00 Pulse Rate 64 04/04/17 06:00 Respiratory Rate 16 04/04/17 06:00 Blood Pressure 110/60 04/04/17 06:00 O2 Sat by Pulse Oximetry (%) Pertinent Admission Physical Exam Findings: WITHDRAWAL SYMPTOM - Treatment Hospital Course: Detox Protocol Followed, Detoxed Safely, Responded well, Discharged Condition Good Patient has Accepted a Rehab Referral to: DECLINED - Medication Discharge Medications: Ambulatory Orders Albuterol Sulfate Inhaler - [Ventolin HFA Inhaler -] 2 inh PO Q4H PRN 09/13/14 Mirtazapine [Remeron -] 30 mg PO HS 09/13/14 Olanzapine [Zyprexa] 15 mg PO HS 09/13/14 Advair 100Mcg/50Mcg - 1 mcg IH QID 02/09/16 Albuterol Sulfate 90 mcg IH QID PRN 02/09/16 Sumatriptan Succinate 50 mg PO BID 02/09/16 Mirtazapine [Remeron -] 30 mg PO HS #30 tablet 10/17/16 Quetiapine Fumarate [Seroquel -] 200 mg PO BID #60 tab 10/17/16 Albuterol Sulfate Inhaler - [Ventolin HFA Inhaler -] 2 puff IH Q4H PRN #1 inhaler 10/20/16 Budesonide/Formeterol Fumarate [SYMBICORT 80/4.5mcg -] 2 puff IH BID #1 inhaler 10/20/16 Naprosyn - 500 mg PO BID PRN #20 10/20/16 Ranitidine [Zantac -] 150 mg PO BID #60 tablet 10/20/16 Quetiapine Fumarate [Seroquel] 100 mg PO HS #30 tablet 04/01/17 - Diagnosis (1) Alcohol dependence with uncomplicated withdrawal Current Visit: Yes Status: Acute (2) Arthritis Current Visit: Yes Status: Acute (3) Cannabis dependence, uncomplicated Current Visit: Yes Status: Acute (4) Cocaine dependence, uncomplicated Current Visit: Yes Status: Acute (5) Insomnia Current Visit: Yes Status: Acute (6) Nicotine dependence Current Visit: Yes Status: Acute Qualifiers: Nicotine product type: cigarettes Substance use status: in withdrawal Qualified Code(s): F17.213 - Nicotine dependence, cigarettes, with withdrawal (7) Tooth abscess Current Visit: Yes Status: Acute (8) Asthma Current Visit: Yes Status: Chronic Qualifiers: Asthma severity: mild persistent Asthma complication type: with status asthmaticus Qualified Code(s): J45.32 - Mild persistent asthma with status asthmaticus (9) COPD (chronic obstructive pulmonary disease) Current Visit: Yes Status: Chronic Qualifiers: COPD type: emphysema Emphysema type: unspecified Qualified Code( s): J43.9 - Emphysema, unspecified (10) GERD (gastroesophageal reflux disease) Current Visit: Yes Status: Chronic Qualifiers: Esophagitis presence: without esophagitis Qualified Code(s): K21.9 - Gastro-esophageal reflux disease without esophagitis (11) Schizoaffective disorder Current Visit: No Status: Suspected Qualifiers: Schizoaffective disorder type: bipolar Qualified Code(s): F25.0 - Schizoaffective disorder, bipolar type - AMA Did Patient Leave Against Medical Advice: No
[2017-04-04 10:02] VITALS: BP 128/65; PULSE 72; TEMP 98.1
== END 2017-04-04 10:03 | disposition home or self-care (01) | DRG 774 ==
LOC: YASAS 20:33 → Y6N 22:28
PROVIDERS: ADMIT Internal Medicine Addiction Medicine; ATTEND Internal Medicine Addiction Medicine
PROC: HZ2ZZZZ Detoxification Services for Substance Abuse Treatment (ICD-10-PCS; principal; 2017-04-04)
DX: F10.230 Alcohol dependence with withdrawal, uncomplicated (principal); F14.20 Cocaine dependence, uncomplicated; F12.20 Cannabis dependence, uncomplicated; F19.24 Other psychoactive substance dependence with psychoactive substance-induced mood disorder; F25.0 Schizoaffective disorder, bipolar type; I10 Essential (primary) hypertension; J45.32 Mild persistent asthma with status asthmaticus; J43.9 Emphysema, unspecified; G47.00 Insomnia, unspecified; K21.9 Gastro-esophageal reflux disease without esophagitis; K04.7 Periapical abscess without sinus; I69.851 Hemiplegia and hemiparesis following other cerebrovascular disease affecting right dominant side; Z91.5 Personal history of self-harm
CPT/HCPCS: 36415; 80048; 80053; 81003; 81015; 85027; 86593; 93005; 93010

== ENCOUNTER 2017-04-21 12:53 | Inpatient (IN) | payer OTHER ==
[2017-04-21 13:59] VITALS: BMI 22.6
[2017-04-21] MEDS ORDERED: guaiFENesin/D-METHORPHAN HB 10 ML UNIT-DOSE CUPS PO PRN (16:32)
[2017-04-21] MEDS ORDERED: NICOTINE POLACRILEX 2 MG GUM BC PRN (16:32)
[2017-04-21] MEDS ORDERED: MENTHOL/PHENOL 1 EACH UD MM PRN (16:32)
[2017-04-21] MEDS ORDERED: MAG HYDROX/AL HYDROX/SIMETH 30 ML UNIT-DOSE CUP PO PRN (16:32)
[2017-04-21] MEDS ORDERED: LOPERAMIDE HCL 2 MG CAPSULE PO PRN (16:32)
[2017-04-21] MEDS ORDERED: MAGNESIUM CITRATE 300 ML BOTTLE PO PRN (16:32)
[2017-04-21] MEDS ORDERED: IBUPROFEN 400 MG TABLET (FP) PO PRN (16:32)
[2017-04-21] MEDS ORDERED: P-EPHED 60MG/TRIPROLIDI 2.5MG TABLET PO PRN (16:32)
[2017-04-21] MEDS ORDERED: diphenhydrAMINE HCL 50 MG CAPSULE PO PRN (16:32)
[2017-04-21] MEDS ORDERED: MAGNESIUM HYDROX 2400MG/30ML ORAL SUSPENSION 30 ML CUP PO PRN (16:32)
--- NOTE | 2017-04-21 16:36 | HP ---
[facility] Rehab Assess/Revision - Admission History Admitted to Rehab from: [facility] [place] Date of Admission to Rehab: 04/21/2017 - Vital signs Vital Signs: Vital Signs Period Temp Pulse Resp BP Sys/Coreas Pulse Ox Last 24 Hr 97.1 F 87 20 153/76 - Findings Detox History & Physical reviewed: Yes Concur with findings: Yes Inpatient Rehab Admission - Initial Determination Are CD services needed?: Yes Free of communicable disease: Yes Not in need of hospitalization: Yes - Rehab Admission Criteria Poor recovery environment: Yes Comorbidities: Yes Patient is meeting Inpatient Rehab admission criteria:: Yes
[2017-04-21] MEDS: BUDESONIDE/FORMETEROL FUMARATE 80/4.5 mcg INHALER IH SCH (21:24)
[2017-04-21] MEDS: MONTELUKAST NA 10 MG TABLET PO SCH (21:24)
[2017-04-21] MEDS: THIAMINE HCL 100 MG TABLET (FP) PO SCH (21:24)
[2017-04-21] MEDS: MIRTAZAPINE 30 MG TABLET (FP) PO SCH (21:24)
[2017-04-21] MEDS: OLANZapine 5 MG TABLET PO SCH (21:26)
[2017-04-21] MEDS: QUEtiapine FUMARATE 200 MG TABLET PO SCH (21:26)
[2017-04-21] MEDS: NICOTINE 14 MG/24 HOURS TOPICAL PATCH TD SCH (21:27)
[2017-04-22] MEDS: NICOTINE 14 MG/24 HOURS TOPICAL PATCH TD SCH (09:55)
[2017-04-22] MEDS: PRENATAL VITAMINS W/ FOLIC ACID TABLET (FP) PO SCH (09:55)
[2017-04-22] MEDS: BUDESONIDE/FORMETEROL FUMARATE 80/4.5 mcg INHALER IH SCH ×2 (09:55→21:34)
[2017-04-22] MEDS: QUEtiapine FUMARATE 200 MG TABLET PO SCH (21:34)
[2017-04-22] MEDS: OLANZapine 5 MG TABLET PO SCH (21:34)
[2017-04-22] MEDS: THIAMINE HCL 100 MG TABLET (FP) PO SCH (21:35)
[2017-04-22] MEDS: MIRTAZAPINE 30 MG TABLET (FP) PO SCH (21:35)
[2017-04-22] MEDS: MONTELUKAST NA 10 MG TABLET PO SCH (21:35)
--- NOTE | 2017-04-22 22:37 | EKG ---
Test Reason : Blood Pressure : / mmHG Vent. Rate : 075 BPM Atrial Rate : 075 BPM P-R Int : 166 ms QRS Dur : 150 ms QT Int : 526 ms P-R-T Axes : 063 -20 092 degrees QTc Int : 587 ms NORMAL SINUS RHYTHM POSSIBLE LEFT ATRIAL ENLARGEMENT LEFT BUNDLE BRANCH BLOCK ABNORMAL ECG WHEN COMPARED WITH ECG OF 31-MAR-2017 22:38, T WAVE INVERSION NOW EVIDENT IN ANTEROLATERAL LEADS QT HAS LENGTHENED REPEAT EKG IF CLINICALLY INDICATED Confirmed by PANDA HEATON MD ([id number]) on 04/22/2017 10:36:46 PM Referred By: Confirmed By:PANDA HEATON MD
[2017-04-23] MEDS: BUDESONIDE/FORMETEROL FUMARATE 80/4.5 mcg INHALER IH SCH ×2 (09:27→21:23)
[2017-04-23] MEDS: PRENATAL VITAMINS W/ FOLIC ACID TABLET (FP) PO SCH (09:27)
[2017-04-23] MEDS: NICOTINE 14 MG/24 HOURS TOPICAL PATCH TD SCH (09:27)
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
[2017-04-23] MEDS: hydrOXYzine PAMOATE 50 MG CAPSULE (FP) PO PRN (14:59)
[2017-04-23] MEDS ORDERED: NAPROXEN 500 MG TABLET (FP) PO ONE (15:00)
[2017-04-23] MEDS: MONTELUKAST NA 10 MG TABLET PO SCH (21:22)
[2017-04-23] MEDS: MIRTAZAPINE 30 MG TABLET (FP) PO SCH (21:22)
[2017-04-23] MEDS: QUEtiapine FUMARATE 200 MG TABLET PO SCH (21:22)
[2017-04-23] MEDS: OLANZapine 5 MG TABLET PO SCH (21:22)
[2017-04-23] MEDS: NAPROXEN 500 MG TABLET (FP) PO SCH (21:23)
[2017-04-23] MEDS: THIAMINE HCL 100 MG TABLET (FP) PO SCH (21:24)
[2017-04-23] MEDS: RANITIDINE HCL 150 MG TABLET (FP) PO SCH (21:24)
[2017-04-24] MEDS: RANITIDINE HCL 150 MG TABLET (FP) PO SCH ×2 (09:50→21:28)
[2017-04-24] MEDS: PRENATAL VITAMINS W/ FOLIC ACID TABLET (FP) PO SCH (09:50)
[2017-04-24] MEDS: NAPROXEN 500 MG TABLET (FP) PO SCH ×2 (09:50→21:28)
[2017-04-24] MEDS: BUDESONIDE/FORMETEROL FUMARATE 80/4.5 mcg INHALER IH SCH ×2 (09:51→21:30)
[2017-04-24] MEDS: NICOTINE 14 MG/24 HOURS TOPICAL PATCH TD SCH (09:51)
[2017-04-24] MEDS: ALBUTEROL SO4 6.7 GM HFA INHALER IH PRN (15:28)
[2017-04-24] MEDS: THIAMINE HCL 100 MG TABLET (FP) PO SCH (21:28)
[2017-04-24] MEDS: MONTELUKAST NA 10 MG TABLET PO SCH (21:28)
[2017-04-24] MEDS: MIRTAZAPINE 30 MG TABLET (FP) PO SCH (21:28)
[2017-04-24] MEDS: OLANZapine 5 MG TABLET PO SCH (21:28)
[2017-04-24] MEDS: QUEtiapine FUMARATE 200 MG TABLET PO SCH (21:29)
[2017-04-25] MEDS: NAPROXEN 500 MG TABLET (FP) PO SCH ×2 (09:52→21:24)
[2017-04-25] MEDS: NICOTINE 14 MG/24 HOURS TOPICAL PATCH TD SCH (09:53)
[2017-04-25] MEDS: PRENATAL VITAMINS W/ FOLIC ACID TABLET (FP) PO SCH (09:53)
[2017-04-25] MEDS: RANITIDINE HCL 150 MG TABLET (FP) PO SCH ×2 (09:53→21:24)
[2017-04-25] MEDS: BUDESONIDE/FORMETEROL FUMARATE 80/4.5 mcg INHALER IH SCH ×2 (09:53→21:27)
[2017-04-25] MEDS: ALBUTEROL SO4 6.7 GM HFA INHALER IH PRN (11:45)
[2017-04-25] MEDS: QUEtiapine FUMARATE 200 MG TABLET PO SCH (21:24)
[2017-04-25] MEDS: MONTELUKAST NA 10 MG TABLET PO SCH (21:25)
[2017-04-25] MEDS: OLANZapine 5 MG TABLET PO SCH (21:25)
[2017-04-25] MEDS: MIRTAZAPINE 30 MG TABLET (FP) PO SCH (21:25)
[2017-04-25] MEDS: THIAMINE HCL 100 MG TABLET (FP) PO SCH (21:27)
[2017-04-26] MEDS ORDERED: PT OWN MED DRAWER 7, Y5N ONE ×2 (08:14→19:17)
[2017-04-26] MEDS: BUDESONIDE/FORMETEROL FUMARATE 80/4.5 mcg INHALER IH SCH ×2 (09:42→21:22)
[2017-04-26] MEDS: NICOTINE 14 MG/24 HOURS TOPICAL PATCH TD SCH (09:42)
[2017-04-26] MEDS: NAPROXEN 500 MG TABLET (FP) PO SCH ×2 (09:43→21:23)
[2017-04-26] MEDS: PRENATAL VITAMINS W/ FOLIC ACID TABLET (FP) PO SCH (09:43)
[2017-04-26] MEDS: RANITIDINE HCL 150 MG TABLET (FP) PO SCH ×2 (09:43→21:24)
[2017-04-26] MEDS: QUEtiapine FUMARATE 200 MG TABLET PO SCH (21:22)
[2017-04-26] MEDS: MIRTAZAPINE 30 MG TABLET (FP) PO SCH (21:22)
[2017-04-26] MEDS: OLANZapine 5 MG TABLET PO SCH (21:24)
[2017-04-26] MEDS: THIAMINE HCL 100 MG TABLET (FP) PO SCH (21:24)
[2017-04-26] MEDS: MONTELUKAST NA 10 MG TABLET PO SCH (21:24)
[2017-04-27] MEDS: PRENATAL VITAMINS W/ FOLIC ACID TABLET (FP) PO SCH (10:00)
[2017-04-27] MEDS: NICOTINE 14 MG/24 HOURS TOPICAL PATCH TD SCH (10:00)
[2017-04-27] MEDS: RANITIDINE HCL 150 MG TABLET (FP) PO SCH ×2 (10:00→21:34)
[2017-04-27] MEDS: BUDESONIDE/FORMETEROL FUMARATE 80/4.5 mcg INHALER IH SCH ×2 (10:00→21:34)
[2017-04-27] MEDS: NAPROXEN 500 MG TABLET (FP) PO SCH ×2 (10:00→21:32)
[2017-04-27] MEDS ORDERED: PT OWN MED DRAWER 7, Y5N ONE (19:18)
[2017-04-27] MEDS ORDERED: MIRTAZAPINE 15 MG TABLET (FP) ONE (19:18)
[2017-04-27] MEDS: MONTELUKAST NA 10 MG TABLET PO SCH (21:32)
[2017-04-27] MEDS: QUEtiapine FUMARATE 200 MG TABLET PO SCH (21:32)
[2017-04-27] MEDS: MIRTAZAPINE 30 MG TABLET (FP) PO SCH (21:33)
[2017-04-27] MEDS: THIAMINE HCL 100 MG TABLET (FP) PO SCH (21:34)
[2017-04-27] MEDS: OLANZapine 5 MG TABLET PO SCH (21:34)
[2017-04-27] MEDS: hydrOXYzine PAMOATE 50 MG CAPSULE (FP) PO PRN (21:35)
[2017-04-28] MEDS: ACETAMINOPHEN 325 MG TABLET (FP) PO PRN ×2 (06:27→11:13)
[2017-04-28] MEDS: RANITIDINE HCL 150 MG TABLET (FP) PO SCH ×2 (10:15→21:36)
[2017-04-28] MEDS: NAPROXEN 500 MG TABLET (FP) PO SCH ×2 (10:15→21:36)
[2017-04-28] MEDS: PRENATAL VITAMINS W/ FOLIC ACID TABLET (FP) PO SCH (10:15)
[2017-04-28] MEDS: NICOTINE 14 MG/24 HOURS TOPICAL PATCH TD SCH (10:16)
[2017-04-28] MEDS: BUDESONIDE/FORMETEROL FUMARATE 80/4.5 mcg INHALER IH SCH ×2 (10:44→21:37)
[2017-04-28] MEDS: THIAMINE HCL 100 MG TABLET (FP) PO SCH (21:35)
[2017-04-28] MEDS: MIRTAZAPINE 30 MG TABLET (FP) PO SCH (21:35)
[2017-04-28] MEDS: MONTELUKAST NA 10 MG TABLET PO SCH (21:35)
[2017-04-28] MEDS: OLANZapine 5 MG TABLET PO SCH (21:36)
[2017-04-28] MEDS: QUEtiapine FUMARATE 200 MG TABLET PO SCH (21:38)
[2017-04-28] MEDS ORDERED: PT OWN MED DRAWER 7, Y5N ONE (21:38)
[2017-04-29] MEDS: RANITIDINE HCL 150 MG TABLET (FP) PO SCH ×2 (10:16→21:44)
[2017-04-29] MEDS: NAPROXEN 500 MG TABLET (FP) PO SCH ×2 (10:16→21:42)
[2017-04-29] MEDS: PRENATAL VITAMINS W/ FOLIC ACID TABLET (FP) PO SCH (10:17)
[2017-04-29] MEDS: BUDESONIDE/FORMETEROL FUMARATE 80/4.5 mcg INHALER IH SCH ×2 (10:17→21:46)
[2017-04-29] MEDS: NICOTINE 14 MG/24 HOURS TOPICAL PATCH TD SCH (10:17)
[2017-04-29] MEDS: ACETAMINOPHEN 325 MG TABLET (FP) PO PRN (16:46)
[2017-04-29] MEDS: MIRTAZAPINE 30 MG TABLET (FP) PO SCH (21:42)
[2017-04-29] MEDS: QUEtiapine FUMARATE 200 MG TABLET PO SCH (21:42)
[2017-04-29] MEDS: MONTELUKAST NA 10 MG TABLET PO SCH (21:43)
[2017-04-29] MEDS: THIAMINE HCL 100 MG TABLET (FP) PO SCH (21:44)
[2017-04-29] MEDS: OLANZapine 5 MG TABLET PO SCH (21:44)
[2017-04-29] MEDS ORDERED: PT OWN MED DRAWER 7, Y5N ONE (21:46)
[2017-04-30] MEDS: ACETAMINOPHEN 325 MG TABLET (FP) PO PRN (06:57)
[2017-04-30] MEDS: BUDESONIDE/FORMETEROL FUMARATE 80/4.5 mcg INHALER IH SCH ×2 (10:31→21:31)
[2017-04-30] MEDS: NICOTINE 14 MG/24 HOURS TOPICAL PATCH TD SCH (10:32)
[2017-04-30] MEDS: PRENATAL VITAMINS W/ FOLIC ACID TABLET (FP) PO SCH (10:32)
[2017-04-30] MEDS: RANITIDINE HCL 150 MG TABLET (FP) PO SCH ×2 (10:32→21:32)
[2017-04-30] MEDS: NAPROXEN 500 MG TABLET (FP) PO SCH ×2 (10:32→21:32)
[2017-04-30] MEDS: QUEtiapine FUMARATE 200 MG TABLET PO SCH (21:31)
[2017-04-30] MEDS: THIAMINE HCL 100 MG TABLET (FP) PO SCH (21:31)
[2017-04-30] MEDS: MIRTAZAPINE 30 MG TABLET (FP) PO SCH (21:32)
[2017-04-30] MEDS: OLANZapine 5 MG TABLET PO SCH (21:32)
[2017-04-30] MEDS: MONTELUKAST NA 10 MG TABLET PO SCH (21:34)
[2017-05-01] MEDS: ACETAMINOPHEN 325 MG TABLET (FP) PO PRN (06:47)
[2017-05-01] MEDS ORDERED: PT OWN MED DRAWER 7, Y5N ONE ×3 (06:47→22:06)
[2017-05-01] MEDS: ALBUTEROL SO4 6.7 GM HFA INHALER IH PRN (06:48)
[2017-05-01] MEDS: NICOTINE 14 MG/24 HOURS TOPICAL PATCH TD SCH (10:15)
[2017-05-01] MEDS: BUDESONIDE/FORMETEROL FUMARATE 80/4.5 mcg INHALER IH SCH ×2 (10:15→21:26)
[2017-05-01] MEDS: RANITIDINE HCL 150 MG TABLET (FP) PO SCH ×2 (10:16→21:24)
[2017-05-01] MEDS: PRENATAL VITAMINS W/ FOLIC ACID TABLET (FP) PO SCH (10:16)
[2017-05-01] MEDS: NAPROXEN 500 MG TABLET (FP) PO SCH ×2 (10:16→21:24)
[2017-05-01] MEDS: OLANZapine 5 MG TABLET PO SCH (21:24)
[2017-05-01] MEDS: QUEtiapine FUMARATE 200 MG TABLET PO SCH (21:24)
[2017-05-01] MEDS: MIRTAZAPINE 30 MG TABLET (FP) PO SCH (21:24)
[2017-05-01] MEDS: THIAMINE HCL 100 MG TABLET (FP) PO SCH (21:25)
[2017-05-01] MEDS: MONTELUKAST NA 10 MG TABLET PO SCH (21:25)
[2017-05-02] MEDS ORDERED: PT OWN MED DRAWER 7, Y5N ONE (06:34)
[2017-05-02] MEDS: ACETAMINOPHEN 325 MG TABLET (FP) PO PRN (06:35)
[2017-05-02 07:18] VITALS: BP 147/82; PULSE 78; TEMP 97.4
--- NOTE | 2017-05-02 08:48 | PN ---
Psychiatric Progress Note Vital Signs: Vital Signs Period Temp Pulse Resp BP Sys/Coreas Pulse Ox Last 24 Hr 97.4 F 78 16-16 147/82 Date of Session: 05/02/17 Chief Complaint:: Discharge visit Current Medications: Active Medications Generic Name Dose Route Start Last Admin Trade Name Freq PRN Reason Stop Dose Admin Acetaminophen 650 mg 04/21/17 16:32 05/02/17 06:35 Tylenol - PO 650 mg Q4H PRN Administration PAIN Al Hydroxide/Mg Hydroxide 30 ml 04/21/17 16:32 Mylanta Oral Suspension - PO Q6H PRN DYSPEPSIA Albuterol Sulfate 2 puff 04/21/17 16:34 05/01/17 06:48 Ventolin Hfa Inhaler - IH 2 puff Q4H PRN Administration SHORT OF BREATH/WHEEZING Budesonide/Formoterol Fumarate 2 puff 04/21/17 22:00 05/01/17 21:26 Symbicort 80/4.5mcg - IH 2 puff BID LORELEI Administration Diphenhydramine HCl 50 mg 04/21/17 16:32 Benadryl - PO HSMR1 PRN INSOMNIA Eucalyptus/Menthol/Phenol/Sorbitol 1 each 04/21/17 16:32 Cepastat Lozenge - MM Q4H PRN SORE THROAT Guaifenesin 10 ml 04/21/17 16:32 Robitussin Dm - PO Q6H PRN COUGH Hydroxyzine Pamoate 50 mg 04/21/17 16:32 04/27/17 21:35 Vistaril - PO 50 mg Q4H PRN Administration AGITATION Loperamide HCl 4 mg 04/21/17 16:32 Imodium - PO Q6H PRN DIARRHEA Magnesium Citrate 300 ml 04/21/17 16:32 Citroma - PO Q48H PRN CONSTIPATION Magnesium Hydroxide 30 ml 04/21/17 16:32 Milk Of Magnesia - PO DAILY PRN CONSTIPATION Mirtazapine 30 mg 04/21/17 22:00 05/01/17 21:24 Remeron - PO 30 mg HS LORELEI Administration Montelukast Sodium 10 mg 04/21/17 22:00 05/01/17 21:25 Singulair - PO 10 mg HS LORELEI Administration Naproxen 500 mg 04/23/17 22:00 05/01/17 21:24 Naprosyn - PO 500 mg BID LORELEI Administration Nicotine 14 mg 04/21/17 17:15 05/01/17 10:15 Nicoderm Patch - TD 14 mg DAILY LORELEI Administration Nicotine Polacrilex 2 mg 04/21/17 16:32 Nicorette Gum - BC Q2H PRN NICOTINE REPLACEMENT RX Olanzapine 15 mg 04/21/17 22:00 05/01/17 21:24 Zyprexa - PO 15 mg HS LORELEI Administration Multivit/Folic Acid/Iron 1 tab 04/22/17 10:00 05/01/17 10:16 Vitamins (Sjr) - PO 1 tab DAILY LORELEI Administration Pseudoephedrine/Triprolidine 1 combo 04/21/17 16:32 Actifed - PO TID PRN NASAL CONGESTION Quetiapine Fumarate 500 mg 04/21/17 22:00 05/01/17 21:24 Seroquel - PO 500 mg HS LORELEI Administration Ranitidine HCl 150 mg 04/23/17 22:00 05/01/17 21:24 Zantac - PO 150 mg BID LORELEI Administration Thiamine HCl 100 mg 04/21/17 22:00 05/01/17 21:25 Vitamin B1 - PO 100 mg HS LORELEI Administration Current Side Effect: No Lab tests ordered: No Lab tests reviewed: Yes Provider note:: Patient completed this program today.She has met her treatment goals and will continue to address her issues on outpatient basis.[facility] Psychiatric Treatment Plan - Problem List (4) Asthma Qualifiers: Asthma severity: mild persistent Asthma complication type: with status asthmaticus (5) COPD (chronic obstructive pulmonary disease) Qualifiers: COPD type: emphysema Emphysema type: unspecified Qualified Code( s): J43.9 - Emphysema, unspecified; J43.9 - Emphysema, unspecified; J43.9 - Emphysema, unspecified; J43.9 - Emphysema, unspecified (6) GERD (gastroesophageal reflux disease) Qualifiers: Esophagitis presence: without esophagitis Qualified Code(s): K21.9 - Gastro-esophageal reflux disease without esophagitis; K21.9 - Gastro- esophageal reflux disease without esophagitis; K21.9 - Gastro-esophageal reflux disease without esophagitis (8) Schizoaffective disorder Qualifiers: Schizoaffective disorder type: bipolar Qualified Code(s): F25.0 - Schizoaffective disorder, bipolar type; F25.0 - Schizoaffective disorder, bipolar type; F25.0 - Schizoaffective disorder, bipolar type; F25.0 - Schizoaffective disorder, bipolar type Comment: As per records.
[2017-05-02] MEDS: RANITIDINE HCL 150 MG TABLET (FP) PO SCH (10:07)
[2017-05-02] MEDS: BUDESONIDE/FORMETEROL FUMARATE 80/4.5 mcg INHALER IH SCH (10:07)
[2017-05-02] MEDS: NAPROXEN 500 MG TABLET (FP) PO SCH (10:08)
[2017-05-02] MEDS: PRENATAL VITAMINS W/ FOLIC ACID TABLET (FP) PO SCH (10:08)
[2017-05-02] MEDS: NICOTINE 14 MG/24 HOURS TOPICAL PATCH TD SCH (10:08)
== END 2017-05-02 10:17 | disposition home or self-care (01) | DRG 772 ==
LOC: YASAS 12:53 → Y3E 17:26
PROVIDERS: ADMIT Internal Medicine; ATTEND Internal Medicine
PROC: HZ42ZZZ Group Counseling for Substance Abuse Treatment, Cognitive-Behavioral (ICD-10-PCS; principal; 2017-04-21)
DX: F10.20 Alcohol dependence, uncomplicated (principal); F14.20 Cocaine dependence, uncomplicated; F12.20 Cannabis dependence, uncomplicated; F25.0 Schizoaffective disorder, bipolar type; I10 Essential (primary) hypertension; J45.20 Mild intermittent asthma, uncomplicated; J43.9 Emphysema, unspecified; K21.9 Gastro-esophageal reflux disease without esophagitis; M12.9 Arthropathy, unspecified
CPT/HCPCS: 93005; 93010